=== PATIENT | female | born 1950 ===

== ENCOUNTER 2016-12-12 13:13 | Outpatient (CLI) | payer MEDICARE, OTHER ==
--- NOTE | 2016-12-12 13:56 | Mammography Report ---
Screening mammogram: Baseline exam. Routine views demonstrates a mostly fatty replaced breast pattern bilaterally however in the right breast there is a dense lobulated increased tissue density subcutaneously of the central and lateral breast. A similar focal island of tissue is identified in the left retroareolar region. CAD used. Impression: Bilateral asymmetries. Recommendation: Bilateral breast ultrasound. If there are any echogenic abnormalities additional evaluation with focal compression imaging of the breasts may be needed. BI-RADS CATEGORY: 0 = Needs additional imaging evaluation ACR BI-RADS MAMMOGRAPHIC CODES: 0 = Needs additional imaging evaluation; 1 = Negative; 2 = Benign; 3 = Probably benign; 4 = Suspicious; 5 = Malignant; 6 = Known biopsy-proven malignancy COMMENT: 1. Dense breast tissue, i.e., adenosis, fibrocystic changes, etc., may obscure an underlying neoplasm. 2. Approximately 10% of cancers are not detected with mammography. 3. A negative mammography report should not delay biopsy if a clinically suspicious mass is present. A
== END 2016-12-12 13:14 | disposition home or self-care (01) ==
LOC: SPVWC 13:13
PROVIDERS: ATTEND Internal Medicine
DX: Z12.31 Encounter for screening mammogram for malignant neoplasm of breast (principal)
CPT/HCPCS: 77067; G0202